=== PATIENT | male | born 2000 | race Caucasian/White ===

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

== ENCOUNTER 2019-01-01 15:04 | Outpatient (CLI) | payer OTHER ==
--- NOTE | 2019-01-01 15:27 | RAD ---
XR Chest Pa Lat @ [facility] HISTORY: Pneumothorax, status post decortication COMPARISON: 12/13/2018 FINDINGS: There is been interval removal of the left-sided chest tubes since the last exam with scarr ing in the left CP angle. The heart size is normal. The lungs are well expanded without focal areas of consolidation, pneumothorax or pleural effusions. IMPRESSION: No radiographic evidence of acute cardiopulmonary process.
== END 2019-01-01 15:05 | disposition home or self-care (01) ==
LOC: RAD 15:04
PROVIDERS: ATTEND Thoracic Surgery (Cardiothoracic Vascular Surgery)
DX: J93.9 Pneumothorax, unspecified (principal)
CPT/HCPCS: 71046

== ENCOUNTER 2019-04-16 10:33 | Outpatient (CLI) | payer OTHER ==
--- NOTE | 2019-04-16 11:29 | RAD ---
CHEST 2 VIEWS: Date: 04/16/2019 HISTORY: Dyspnea. COMPARISON: 01/01/2019. FINDINGS: Minimal bilateral hyperinflation. Some stable scarring and blunting in the left costophrenic angle. N o confluent pneumonia, overt edema, or pleural effusion. IMPRESSION: No significant acute intrathoracic disease. Stable blunting in the left costophrenic angle. POS: OFF
== END 2019-04-16 10:34 | disposition home or self-care (01) ==
LOC: RAD 10:33
PROVIDERS: ATTEND Internal Medicine Critical Care Medicine
DX: R06.00 Dyspnea, unspecified (principal)
CPT/HCPCS: 71046

== ENCOUNTER 2021-01-21 09:08 | Outpatient (CLI) | payer OTHER | END 2021-01-21 09:09 | disposition home or self-care (01) | LOC: RAD 09:08 | PROVIDERS: ATTEND Internal Medicine Critical Care Medicine | DX: R06.00 Dyspnea, unspecified (principal) | CPT/HCPCS: 71046 ==